=== PATIENT | male | born 1995 | race Two or more races ===

== ENCOUNTER 2020-04-25 06:38 | Emergency (ER) | payer SELFPAY ==
[~2020-04-25] VITALS: Ht 167.6 cm; Wt 99.8 kg
[2020-04-25 06:50] VITALS: BP 129/66
--- NOTE | 2020-04-25 06:56 | NUR ---
ED Nurse Note: BROUGHT BY [facility] FOR MED CLEARANCE. PT C/O DIARRHEA SINCE 04/23. PT STATES HE TESTED + COVID ON 04/23 BUT DENIES SOB, CP. LASD AT BEDSIDE, VSS, NAD, AAOX4, AMBULATORY, ERMD AT BEDSIDE
--- NOTE | 2020-04-25 07:04 | Emergency Room Report ---
History of Present Illness General Chief Complaint: Medical Clearance Source: Patient Present Illness HPI 24 -year-old male with no prior medical history brought in by PD for senior care check. States he was diagnosed with COVID on 04/23. Is c/o nonbloody diarrhea x1 day. Denies fever, abdominal pain, vomiting, back pain, chest pain, cough, shortness of breath, wheezing. The patient's symptoms were gradual onset, severity was moderate, duration since 1 day. Quality: No pain Severity: mild Past medical history: Denies Past surgical history: Denies Smoking: denies Alcohol use: Denies Drug use: denies Review of systems: CONST: No fevers or chills, No night sweats PULMONARY: No productive cough, No shortness of breath CARDIAC: No chest pain, No palpitations GI: No vomiting, + diarrhea , No melena_or_BRBPR : No dysuria, No hematuria, No discharge NEURO: No new_focal_weakness_or_numbness, No confusion, No vision changes 14 point Review of Systems is otherwise negative except per HPI Physical Exam: GENERAL: Awake_alert_ nontoxic, no acute distress Spo2 92% on RA -normal EYES: Extraocular muscles are intact. Conjunctivae clear. Lids without swelling ENT: External nose and ear normal_in_appearance. Oropharynx clear. Head_ atraumatic, Moist_oral_mucosa NECK: No JVD. No meningismus. No thyromegaly. Supple. Trachea midline RESP: Normal respiratory effort. Symmetric rise. No stridor. Clear_to_ auscultation_No_rales_No_wheezes CARDIAC: Regular rate and regular rhythm on_auscultation No_significant pedal edema. ABDOMEN: Soft. Nondistended. Nontender_No_rebound_or_guarding. MSK: Normal muscle tone, without rigidity. Extremities without asymmetric deformity or swelling. SKIN: Warm and dry. No visible cyanosis or pallor. Chronic L facial dermatitis. No cellulitis NEUROLOGIC: Alert, oriented x3. Motor_and_sensation_grossly_intact. No truncal ataxia. Gait_normal Psych: Normal mood and affect, normal judgment and insight - COORDINATION OF CARE Case was discussed with: Patient Medical Decision Making/Plan: Patient has no evidence of medical emergency that would prevent them from being booked into police custody. Patient is medically cleared for senior care. DDx: Diarrhea 2/2 viral syndrome vs COVID 19 vs gastroenteritis vs less likely colitis Vitals reviewed. Unremarkable. Patient is afebrile. Abdominal examination is nontender and non-peritoneal. No CVA tenderness to palpation. He is clinically sober and neurologically intact. No indication for abx at this time Patient received Zofran for GI upset in ED with relief of symptoms. Patient is medically clear for senior care. Pertinent physical exam findings reviewed with the patient. I educated the patient on the current treatment plan including the risks, benefits, and alternatives. I also discussed the extent and limitations of the current evaluation. The patient expressed understanding and agreement with plan. I recommended PMD at senior care follow-up within 1-2 days. Also advised that the patient return to the Emergency Department as soon as possible if they experience any new, persistent, or worsening symptoms. 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 Nursing Documentation-[facility] Past Medical History: No Stated History Physical Exam Vital Signs Date Time Temp Pulse Resp B/P (MAP) Pulse Ox O2 Delivery O2 Flow Rate FiO2 04/25/20 06:44 98.4 102 18 129/66 (87) 98 Room Air 04/25/20 06:53 98 Sp02 EP Interpretation: reviewed, normal Medical Decision Making Diagnostic Impression: Primary Impression: Diarrhea Additional Impressions: COVID-19 Medical clearance for incarceration Reevaluation Time: 07:03 Last Vital Signs Date Time Temp Pulse Resp B/P (MAP) Pulse Ox O2 Delivery O2 Flow Rate FiO2 04/25/20 06:53 103 18 Room Air 98 04/25/20 06:50 98.4 129/66 98 Status: improved Disposition: LAW ENFORCEMENT IN CUST Admit Decision Time: 07:03 Condition: Stable Referrals: NOT CHOSEN IPA/MD,REFERRING (PCP) Additional Instructions: Patient is medically clear for senior care Instructions for patient/bank messenger: Follow up with your physician in 1-2 days with senior care MD. Follow-up with your doctor sooner if your condition requires a more timely clinical reevaluation. Return to the emergency department immediately if you feel that your condition is worsening or if you have any new or concerning symptoms. Review your discharge instructions and take any prescriptions given as instructed. Zeenat Ogden D.O. Apr 25, 2020 07:04
--- NOTE | 2020-04-25 07:07 | NUR ---
ED Nurse Note: GAVE REPORT TO MALIHA FUNK
[2020-04-25 07:21] VITALS: BP 128/64
--- NOTE | 2020-04-25 07:21 | NUR ---
ER DISCHARGE NOTE: Patient is cleared to be discharged per ERMD, pt is aox4, on room air, with stable vital signs. was given dc instructions, was able to verbalize understanding, pt id band removed. pt is able to ambulate with steady gait. pt took all belongings. pt left ED accompanied by .
== END 2020-04-25 07:21 ==
LOC: EMR 06:57
DX: U07.1 COVID-19 (principal); R19.7 Diarrhea, unspecified
CPT/HCPCS: 99282